=== PATIENT | female | born 1980 | race Two or more races ===

== ENCOUNTER 2020-05-01 23:25 | Emergency (ER) | payer OTHER ==
[~2020-05-01] VITALS: Ht 167.6 cm; Wt 93.2 kg
[2020-05-01 23:40] VITALS: BP 112/76
[2020-05-02] MEDS ORDERED: AMOX1TAB61 PO (00:10)
--- NOTE | 2020-05-02 00:10 | PHYS DOC ---
Past History Past Medical History: No Pertinent History Past Surgical History: Alcohol Use: Occasionally Adult General Chief Complaint Chief Complaint: DENTAL PROBLEM HPI HPI Patient is a 39-year-old female who presents with dental pain. States she had a root canal 4 days ago and started having pain yesterday. States she did call her dentist. States she was prescribed antibiotics, and fill them but just did not take any of them. States she had not taken anything for the pain. Denies fevers, ear or jaw pain, trouble or pain with swallowing. States that her tooth pain is about 7 out of 10, sharp in nature. Denies any chest pain, shortness of breath, abdominal pain, nausea, vomiting. Review of Systems Review of Systems Review of systems otherwise unremarkable except noted in HPI Current Medications Current Medications Current Medications Medications (Trade) Dose Ordered Sig/Leanne Start Time Stop Time Status Last Admin Dose Admin Amoxicillin/ Clavulanate Potassium (Augmentin 875/ 125mg) 1 tab 1X ONCE 05/02/20 00:00 05/02/20 00:01 UNV Benzocaine (Hurricaine One) 1 spray 1X ONCE 05/02/20 00:00 05/02/20 00:01 UNV Ibuprofen (Motrin) 800 mg 1X ONCE 05/02/20 00:00 05/02/20 00:01 UNV Oxycodone/ Acetaminophen (Percocet 5/325) 2 tab 1X ONCE 05/02/20 00:00 05/02/20 00:01 UNV Physical Exam Physical Exam Constitutional: Well developed, well nourished, no acute distress, non-toxic appearance. [] HENT: Normocephalic, atraumatic, bilateral external ears normal, oropharynx moist, no oral exudates, right upper back molar appears to have had a root canal and filled. No obvious other trauma to the tooth and gumline does not appear erythematous or infected. Eyes: conjunctiva normal, no discharge. [] Neck: Normal range of motion, no tenderness, supple, no stridor. [] Neurologic: Alert and oriented X 3, normal motor function, normal sensory function, no focal deficits noted. [] Psychologic: Affect normal, judgement normal, mood normal. [] Current Patient Data Vital Signs Vital Signs Date Time Temp Pulse Resp B/P (MAP) Pulse Ox O2 Delivery O2 Flow Rate FiO2 05/01/20 23:40 98.3 71 18 112/76 (88) 99 EKG EKG [] Radiology/Procedures Radiology/Procedures [] Heart Score C/O Chest Pain: No Risk Factors: Risk Factors: DM, Current or recent (<one month) smoker, HTN, HLP, family his tory of CAD, obesity. Risk Scores: Risk Factors: DM, Current or recent (<one month) smoker, HTN, HLP, family history of CAD, obesity. Course & Med Decision Making Course & Med Decision Making Patient is a 39-year-old female who presents with dental pain Vital signs not concerning. Physical exam noted above. Patient started on Augmentin in the ED as she filled her prescription from the dentist, and decided not to take it and then lost it. Given ibuprofen, Percocet and Hurricaine spray for pain control. Discussed pain control at home. Advised to take all antibiotics as prescribed. Advised to call dentist in the morning to update on situation. Gave return precautions for the ED. Patient grateful, verbalized understanding and agreed with plan of discharge. [] Dragon Disclaimer Dragon Disclaimer This electronic medical record was generated, in whole or in part, using a voice recognition dictation system. Departure Departure: Impression: Primary Impression: Pain, dental Disposition: 01 DC HOME SELF CARE/HOMELESS Condition: GOOD Referrals: PCP,UNKNOWN (PCP) Patient Instructions: Dental Pain Additional Instructions: Please read all the attached information. Please take all your antibiotics as prescribed. Please begin a Tylenol, ibuprofen and Orajel treatment at home as discussed and explained for pain control. Please call your dentist first thing in the morning to update on your situation and need for urgent follow-up visit. Please come back to the ED with new or concerning symptoms. Scripts Amoxicillin/Potassium Clav (AUGMENTIN 875-125 TABLET) 1 Each Tablet 1 TAB PO BID for dental pain for 10 Days, #20 TAB 0 Refills Prov: TAZ DASILVA MD 05/02/20 TAZ DASILVA MD May 02, 2020 00:10
[2020-05-02] MEDS: oxyCODONE/APAP 5/325 1 TAB TABLET PO ONE (00:25)
[2020-05-02] MEDS: AMOXICILLIN/K CLAV 875/125MG TABLET. PO ONE (00:25)
[2020-05-02] MEDS: IBUPROFEN 400 MG TABLET. PO ONE (00:28)
[2020-05-02] MEDS: BENZOCAINE ONE 20% MUCOSAL SPRAY. MM (00:29)
== END 2020-05-02 00:30 | disposition home or self-care (01) ==
LOC: ER 23:25
DX: K08.89 Other specified disorders of teeth and supporting structures (principal)
CPT/HCPCS: 99283; 99284

== ENCOUNTER 2020-07-03 11:13 | Emergency (ER) | payer OTHER ==
[~2020-07-03] VITALS: Ht 167.6 cm; Wt 90.2 kg
[~2020-07-03 11:13] MED LIST: AMOX1TAB61 PO
[2020-07-03 11:56] LABS: BASO # 0.1 x10^3/uL (0.0-0.2); BASO % 1 % (0-3); EOS # 0.2 x10^3/uL (0.0-0.7); EOS % 3 % (0-3); HEMATOCRIT 36.6 % (36.0-47.0); HEMOGLOBIN 12.2 g/dL (12.0-15.5); LYMPH # 1.6 x10^3/uL (1.0-4.8); LYMPH % 24 % (24-48); MEAN CORPUSCULAR HEMOGLOBIN 28 pg (25-35); MEAN CORPUSCULAR HGB CONC 33 g/dL (31-37); MEAN CORPUSCULAR VOLUME 84 fL (79-100); MONO # 0.8 x10^3/uL (0.0-1.1); MONO % 12 % (0-9); NEUT % 60 % (31-73); PLATELET COUNT 308 x10^3/uL (140-400); RED BLOOD COUNT 4.36 x10^6/uL (3.50-5.40); RED CELL DISTRIBUTION WIDTH 13.9 % (11.5-14.5); WHITE BLOOD COUNT 6.7 x10^3/uL (4.0-11.0)
[2020-07-03 12:03] LABS: CALCIUM 8.6 mg/dL (8.5-10.1); CREATININE 0.8 mg/dL (0.6-1.0); GFR 80.7; POTASSIUM 3.8 mmol/L (3.5-5.1)
--- NOTE | 2020-07-03 12:03 | RAD ---
EXAM: Chest, single view. HISTORY: Heart palpitations. COMPARISON: None. FINDINGS: A frontal view of the chest is obtained. There is no infiltrate, pleural effusion or pneumo thorax. The heart is normal in size. IMPRESSION: No acute pulmonary finding. Electronically signed by: Janki Gongora MD (07/03/2020 12:01 PM) [id number]
[2020-07-03 12:15] LABS: ALBUMIN 3.5 g/dL (3.4-5.0); ALBUMIN/GLOBULIN RATIO 0.9 (1.0-1.7); TOTAL BILIRUBIN 0.5 mg/dL (0.2-1.0); TOTAL PROTEIN 7.6 g/dL (6.4-8.2)
--- NOTE | 2020-07-03 12:18 | EKG ---
[address] [address] Test Date: 2020-07-03 Test Time: 11:29:51 Pat Name: KEON FRY Department: Room: Gender: F Web Marketing Manager: : 1980 Requested By: SHAE SWEET Order Number: [id number] Reading MD: Measurements Intervals [place] Rate: 71 P: 41 CT: 156 QRS: 34 QRSD: 78 T: 21 QT: 358 QTc: 393 Interpretive Statements SINUS RHYTHM OTHERWISE NORMAL ECG RI6.02 No previous ECG available for comparison
--- NOTE | 2020-07-03 12:23 | PHYS DOC ---
Past History Past Medical History: Anxiety Additional Past Medical Histor: mood disorder, Past Surgical History: Additional Past Surgical Histo: D&C Alcohol Use: Occasionally General Adult EDM: Chief Complaint: CHEST PAIN HPI: HPI: Patient is a 39-year-old female who presented to ER for evaluation of anxiety, heart palpitation since last night. Patient says she could not sleep last night because she had an anxiety attack, she felt like her heart was racing. Patient has history of anxiety, she took her anxiety medication but did not get better. This morning she called her family physician who told her to come to ER for evaluation. Patient says she feels really tired right now because she did not sleep was last night. Patient denies any chest pain, no cough, no fever, no abdominal pain, no nausea vomiting Review of Systems: Review of Systems: Constitutional: Denies fever or chills Eyes: Denies change in visual acuity HENT: Denies nasal congestion or sore throat Respiratory: Denies cough or shortness of breath Cardiovascular: Positive for heart palpitation, no chest pain, no trouble breathing. GI: Denies abdominal pain, nausea, vomiting, bloody stools or diarrhea : Denies dysuria Musculoskeletal: Denies back pain or joint pain Integument: Denies rash Neurologic: Denies headache, focal weakness or sensory changes Endocrine: Denies polyuria or polydipsia Lymphatic: Denies swollen glands Psychiatric: Positive for anxiety, no depression Allergies: Allergies: Allergies Coded Allergies Type Severity Reaction Last Updated Verified No Known Drug Allergies 05/02/20 No Physical Exam: PE: Constitutional: Well developed, well nourished, no acute distress, non-toxic appearance. [] HENT: Normocephalic, atraumatic, bilateral external ears normal, oropharynx moist, no oral exudates, nose normal. [] Eyes: PERRLA, EOMI, conjunctiva normal, no discharge. [] Neck: Normal range of motion, no tenderness, supple, no stridor. [] Cardiovascular:Heart rate regular rhythm, no murmur [] Lungs & Thorax: Bilateral breath sounds clear to auscultation [] Abdomen: Bowel sounds normal, soft, no tenderness, no masses, no pulsatile ma sses. [] Skin: Warm, dry, no erythema, no rash. [] Back: No tenderness, no CVA tenderness. [] Extremities: No tenderness, no cyanosis, no clubbing, ROM intact, no edema. [] Neurologic: Alert and oriented X 3, normal motor function, normal sensory function, no focal deficits noted. [] Psychologic: Affect normal, judgement normal, mood normal. [] Current Patient Data: Labs: Laboratory Tests Test 07/03/20 11:38 White Blood Count 6.7 x10^3/uL (4.0-11.0) Red Blood Count 4.36 x10^6/uL (3.50-5.40) Hemoglobin 12.2 g/dL (12.0-15.5) Hematocrit 36.6 % (36.0-47.0) Mean Corpuscular Volume 84 fL (79-100) Mean Corpuscular Hemoglobin 28 pg (25-35) Mean Corpuscular Hemoglobin Concent 33 g/dL (31-37) Red Cell Distribution Width 13.9 % (11.5-14.5) Platelet Count 308 x10^3/uL (140-400) Neutrophils (%) (Auto) 60 % (31-73) Lymphocytes (%) (Auto) 24 % (24-48) Monocytes (%) (Auto) 12 % (0-9) H Eosinophils (%) (Auto) 3 % (0-3) Basophils (%) (Auto) 1 % (0-3) Neutrophils # (Auto) 4.0 x10^3uL (1.8-7.7) Lymphocytes # (Auto) 1.6 x10^3/uL (1.0-4.8) Monocytes # (Auto) 0.8 x10^3/uL (0.0-1.1) Eosinophils # (Auto) 0.2 x10^3/uL (0.0-0.7) Basophils # (Auto) 0.1 x10^3/uL (0.0-0.2) Sodium Level 140 mmol/L (136-145) Potassium Level 3.8 mmol/L (3.5-5.1) Chloride Level 107 mmol/L (98-107) Carbon Dioxide Level 26 mmol/L (21-32) Anion Gap 7 (6-14) Blood Urea Nitrogen 10 mg/dL (7-20) Creatinine 0.8 mg/dL (0.6-1.0) Estimated GFR ([place]-Gault) 80.7 BUN/Creatinine Ratio 13 (6-20) Glucose Level 107 mg/dL (70-99) H Calcium Level 8.6 mg/dL (8.5-10.1) Magnesium Level 2.0 mg/dL (1.8-2.4) Total Bilirubin 0.5 mg/dL (0.2-1.0) Aspartate Amino Transferase (AST) 17 U/L (15-37) Alanine Aminotransferase (ALT) 22 U/L (14-59) Alkaline Phosphatase 58 U/L (46-116) Troponin I Quantitative < 0.017 ng/mL (0-0.055) CB-Ayt-S-Type Natriuretic Peptide 40 pg/mL (0-124) Total Protein 7.6 g/dL (6.4-8.2) Albumin 3.5 g/dL (3.4-5.0) Albumin/Globulin Ratio 0.9 (1.0-1.7) L Vital Signs: Vital Signs Date Time Temp Pulse Resp B/P (MAP) Pulse Ox O2 Delivery O2 Flow Rate FiO2 07/03/20 11:33 98.1 78 18 108/60 (88) 98 EKG: EKG: EKG was done at 1130, heart rate of 70 bpm, normal sinus rhythm, no ST segment elevation. Radiology/Procedures: Radiology/Procedures: [][place] [address] IMAGING REPORT Signed PATIENT: KEON FRY ACCOUNT: [id number] : 1980 LOCATION: ER AGE: 39 SEX: F EXAM STATUS: REG ER ORD. PHYSICIAN: SHAE SWEET DO REASON: heart palpitation, soa PROCEDURE: PORTABLE CHEST 1V EXAM: Chest, single view. HISTORY: Heart palpitations. COMPARISON: None. FINDINGS: A frontal view of the chest is obtained. There is no infiltrate, pleural effusion or pneumothorax. The heart is normal in size. IMPRESSION: No acute pulmonary finding. Electronically signed by: Janki Simmons MD (07/03/2020 12:01 PM) [id number] DICTATED AND SIGNED BY: JANKI SIMMONS MD DATE: 07/03/20 1201 CC: CANDI MAY DO; SHAE SWEET DO ~MTH0 0 Heart Score: C/O Chest Pain: Yes HEART Score for Chest Pain: HEART Score for Chest Pain Response (Comments) Value History Slighlty/Non-Suspicious 0 ECG Normal 0 Age < 45 0 Risk Factors No Risk Factors 0 Troponin < Normal Limit 0 Total 0 Risk Factors: Risk Factors: DM, Current or recent (<one month) smoker, HTN, HLP, family history of CAD, obesity. Risk Scores: Score 0 - 3: 2.5% MACE over next 6 weeks - Discharge Home Score 4 - 6: 20.3% MACE over next 6 weeks - Admit for Clinical Observation Score 7 - 10: 72.7% MACE over next 6 weeks - Early Invasive Strategies Course & Med Decision Making: Course & Med Decision Making Pertinent Labs and Imaging studies reviewed. (See chart for details) [Patient is a 39-year-old female who presented to ER for evaluation of heart palpitation and anxiety. Her lab work and EKG was normal in the ER. Patient already on medication for anxiety, she will be discharged home, she was instructed to follow-up with her family physician for reevaluation. Patient is amenable to plan of care. Dragon Disclaimer: Dragon Disclaimer: This electronic medical record was generated, in whole or in part, using a voice recognition dictation system. Departure Departure: Impression: Primary Impression: Heart palpitations Disposition: 01 HOME / SELF CARE / HOMELESS Condition: STABLE Referrals: CANDI MAY DO (PCP) Follow up with your doctor this week Patient Instructions: Palpitations Additional Instructions: Thank you for visiting our Emergency Department. We appreciate you trusting us with your care. If any additional problems come up don't hesitate to return to visit us. Please follow up with your primary care provider so they can plan additional care if needed and know about the problem that you had. If symptoms worsen come back to the Emergency Department. Any concerning symptoms that start such as chest pain, shortness of air, weakness or numbness on one side of the body, running high fevers or any other concerning symptoms return to the ER. SHAE SWEET DO July 03, 2020 12:23
[2020-07-03 12:36] VITALS: BP 104/64
== END 2020-07-03 12:57 | disposition home or self-care (01) ==
LOC: ER 11:13
DX: R00.2 Palpitations (principal); F41.9 Anxiety disorder, unspecified
CPT/HCPCS: 36415; 71045; 80053; 83735; 83880; 84443; 84484; 85025; 93005; 99285-25